=== PATIENT | female | born 1955 | race Caucasian/White ===

== ENCOUNTER 2018-03-21 18:06 | Emergency (ER) | payer BC ==
[2018-03-21 19:26] VITALS: BP 138/69
[2018-03-21] MEDS ORDERED: Albuterol 2.5 MG/3 ML NEB.SOL* (0.083%) INH ONE (19:37)
--- NOTE | 2018-03-21 19:38 | UC ---
General HPI - HPI Summary HPI Summary: Patient states that this is the beginning of week 3 of her chest congestion and cough that is worsening. She is also complaining of having an associated fever and reports some shortness of breath or difficulty taking deep breath with activity. She denies any history of wheezing as well as chronic lung disease. She also denies any associated history of heart disease and chest pain. - History of Current Complaint Chief Complaint: UCRespiratory Stated Complaint: FEVER/COUGH/CONGESTION Time Seen by Provider: 03/21/18 19:32 Hx Obtained From: Patient Onset/Duration: Gradual Onset Timing: Constant Pain Intensity: 0 Alleviating: Nothing Associated Signs & Symptoms: Positive: Cough, Fever, SOB. Negative: Chest Pain , Hemoptysis, Wheezing - Allergy/Home Medications Allergies/Adverse Reactions: Allergies Allergy/AdvReac Type Severity Reaction Status Date / Time No Known Allergies Allergy Verified 03/21/18 19:17 Home Medications: Home Medications Methylphenidate HCl [Ritalin LA] 10 mg PO DAILY 03/21/18 [History Confirmed 06/26] Sertraline* [Zoloft*] 12.5 mg PO DAILY 03/21/18 [History Confirmed 03/21/18] PMH/Surg Hx/FS Hx/Imm Hx - Additional Past Medical History Additional PMH: ADD, depression - Surgical History Surgical History: Yes Surgery Procedure, Year, and Place: 3 C-SECTIONS. LEFT OPHERECTOMY. D&C - Social History Occupation: Employed Full-time Alcohol Use: Occasionally Substance Use Type: None Smoking Status (MU): Never Smoked Tobacco - Immunization History Vaccination Up to Date: Yes Review of Systems Constitutional: Fever, Chills Skin: Negative Eyes: Negative ENT: Negative Respiratory: Shortness Of Breath, Cough Cardiovascular: Negative Gastrointestinal: Negative Genitourinary: Negative Motor: Negative Neurovascular: Negative Musculoskeletal: Negative Neurological: Negative Psychological: Negative Is Patient Immunocompromised?: No All Other Systems Reviewed And Are Negative: Yes Physical Exam Triage Information Reviewed: Yes Appearance: Well-Appearing Vital Signs: Initial Vital Signs Temp 98.4 F 03/21/18 19:19 Pulse 62 03/21/18 19:19 Resp 15 03/21/18 19:19 BP 138/69 03/21/18 19:19 Pulse Ox 100 03/21/18 19:19 Vital Signs Reviewed: Yes Eyes: Positive: Conjunctiva Clear ENT: Positive: Pharynx normal, TMs normal. Negative: Nasal congestion, Nasal drainage Neck: Positive: Supple, Nontender, No Lymphadenopathy Respiratory: Positive: Lungs clear, No respiratory distress, Decreased breath sounds, Other: - Cough is coarse and congested Cardiovascular: Positive: RRR, No Murmur Abdomen Description: Positive: Nontender, No Organomegaly, Soft Bowel Sounds: Positive: Present Musculoskeletal: Positive: ROM Intact, No Edema Neurological: Positive: Alert Psychological: Positive: Age Appropriate Behavior Skin Exam: Normal Diagnostics - Radiology No standard instances Xray Interpretation: No Acute Changes - WET READ Re-Evaluation - Re-Evaluation First Eval Change: Unchanged - PT FELT NO BENEFIT FROM THE NEB TX. BS UNCHANGED Course/Dx - Course Course Of Treatment: Nontoxic, not hypoxic and chest x-ray is unremarkable; however, patient has been ill for over 2 weeks and is worsening with pulmonary symptoms thus I will cover her for presumptive secondary bacterial infection. Need for close follow-up and recheck stressed during time of visit. - Differential Dx - Multi-Symptom Provider Diagnoses: Cough. Subjective fever Discharge - Sign-Out/Discharge Documenting (check all that apply): Patient Departure All imaging exams completed and their final reports reviewed: No - Discharge Plan Condition: Stable Disposition: HOME Prescriptions: DOXYcycline CAP(*) [DOXYcycline 100MG CAP(*)] 100 mg PO BID 7 Days #14 cap Fluconazole [Diflucan 150 MG (NF)] 150 mg PO ONCE #1 tab Patient Education Materials: Acute Cough (ED) Forms: *Work Release Additional Instructions: FOLLOW UP WITH YOUR PRIMARY CARE DOCTOR IN [place] IN 5-7 DAYS FOR A RECHECK OR SOONER IF WORSE. - Billing Disposition and Condition Condition: STABLE Disposition: Home
[2018-03-21] MEDS ORDERED: DOXYcycline CAP(*) 100 MG PO ONE (20:17)
--- NOTE | 2018-03-22 07:48 | RAD ---
INDICATION: Cough and shortness of breath. COMPARISON: There are no relevant prior studies available for comparison. TECHNIQUE: Dual-energy PA and lateral views of the chest were obtained. FINDINGS: The heart is within normal limits in size. Mediastinal and hilar contours appear within normal limits. The lungs are hyperinflated and clear. No pleural effusion is seen. IMPRESSION: FINDINGS SUGGESTIVE OF COPD, NO EVIDENCE FOR ACUTE FINDING. R0
--- NOTE | 2018-03-22 14:34 | UC ---
- EKG/XRAY/CT XRAY: chest Xray Comments: wet read correct Re-Evaluation - Re-Evaluation First Eval Change: Unchanged - PT FELT NO BENEFIT FROM THE NEB TX. BS UNCHANGED Discharge - Sign-Out/Discharge Documenting (check all that apply): Post-Discharge Follow Up All imaging exams completed and their final reports reviewed: Yes - Discharge Plan Condition: Stable Disposition: HOME Prescriptions: DOXYcycline CAP(*) [DOXYcycline 100MG CAP(*)] 100 mg PO BID 7 Days #14 cap Fluconazole [Diflucan 150 MG (NF)] 150 mg PO ONCE #1 tab Patient Education Materials: Acute Cough (ED) Forms: *Work Release Referrals: No Primary Care Phys,NOPCP [Primary Care Provider] - Additional Instructions: FOLLOW UP WITH YOUR PRIMARY CARE DOCTOR IN [place] IN 5-7 DAYS FOR A RECHECK OR SOONER IF WORSE. - Billing Disposition and Condition Condition: STABLE Disposition: Home
== END 2018-03-21 20:31 | disposition home or self-care (01) ==
LOC: UCCORT 18:06
DX: R05 Cough (principal); R50.9 Fever, unspecified; F98.8 Other specified behavioral and emotional disorders with onset usually occurring in childhood and adolescence; F32.9 Major depressive disorder, single episode, unspecified
CPT/HCPCS: 71046; 99202; A9270-GY; G0463